=== PATIENT | male | born 1960 | race African-American/Black ===

== ENCOUNTER 2018-08-19 08:24 | Inpatient (IN) | payer OTHER | END 2018-08-21 12:48 | disposition left against medical advice (07) | LOC: YASAS 08:24 → Y3N 13:24 ==

== ENCOUNTER 2019-05-05 13:38 | Emergency (ER) | payer OTHER ==
[2019-05-05] MEDS ORDERED: HALOPERIDOL LACTATE 5 MG/ML IM ONE ×2 (13:50→14:26)
[2019-05-05] MEDS ORDERED: HALOPERIDOL LACTATE 5 MG/ML ONE ×2 (13:51→14:01)
[2019-05-05] MEDS ORDERED: LORazepam 2 MG/ML SDV VIAL ONE (14:01)
[2019-05-05] MEDS ORDERED: SODIUM CHLORIDE 0.9% 500 ML INFUS.BAG IV ONE (14:34)
--- NOTE | 2019-05-05 14:36 | PDOC ---
History of Present Illness - General Stated Complaint: INTOXIC Time Seen by Provider: 05/05/19 13:52 - History of Present Illness Initial Comments: The pt is a 58M w/ a history of EtOH abuse who presents for evaluation from [facility] intake for evaluation of intoxication. History is limited 2/2 pt cooperation. Pt reports EtOH use but denies other substance abuse. Pt denies any pain currently. 05/05/19 14:37 Past History - Past Medical History Allergies/Adverse Reactions: Allergies Allergy/AdvReac Type Severity Reaction Status Date / Time No Known Allergies Allergy Verified 08/19/18 08:56 Home Medications: Ambulatory Orders NK [No Known Home Medication] 08/19/18 Anemia: No Asthma: No Cancer: No Cardiac Disorders: No CVA: No COPD: No CHF: No Dementia: No Diabetes: No GI Disorders: No Disorders: No HTN: No Hypercholesterolemia: No Kidney Stones: No Liver Disease: No Seizures: No Thyroid Disease: No - Surgical History Abdominal Surgery: No Appendectomy: No Cardiac Surgery: No Cholecystectomy: No Lung Surgery: No Neurologic Surgery: No Orthopedic Surgery: Yes (repair of tendon right hand in 1982 at) - Reproductive History Testicular Surgery: No - Psycho Social/Smoking Cessation Hx Smoking History: Current every day smoker Have you smoked in the past 12 months: Yes Number of Cigarettes Smoked Daily: 5 'Breaking Loose' booklet given: 08/19/18 Hx Alcohol Use: Yes Drug/Substance Use Hx: No Substance Use Type: Alcohol Hx Substance Use Treatment: Yes Review of Systems - Review of Systems Able to Perform ROS?: Yes Comments:: GENERAL/CONSTITUTIONAL: No fever or chills. HEAD, EYES, EARS, NOSE AND THROAT: No change in vision. No change in hearing. No sore throat CARDIOVASCULAR: No chest pain or shortness of breath RESPIRATORY: Denies cough, hemoptysis GASTROINTESTINAL: No nausea, vomiting, diarrhea or constipation GENITOURINARY: No dysuria, frequency, or change in urination MUSCULOSKELETAL: No joint or muscle swelling or pain. No neck or back pain SKIN: No rash NEUROLOGIC: No headache, vertigo, loss of consciousness, or change in strength/ sensation ENDOCRINE: No increased thirst. No abnormal weight change HEMATOLOGIC/LYMPHATIC: No anemia, easy bleeding, or history of blood clots ALLERGIC/IMMUNOLOGIC: No hives or skin allergy 05/05/19 14:34 Is the patient limited Syrian proficient: No *Physical Exam - Vital Signs Initial Vital Signs Temp Pulse Resp BP Pulse Ox 97.8 F 105 H 19 105/64 99 05/05/19 14:35 05/05/19 14:35 05/05/19 14:35 05/05/19 14:35 05/05/19 14:35 05/05/19 16:21 - Physical Exam GENERAL: Awake, alert, and oriented to person, appears intoxicated HEAD: No signs of trauma, normocephalic, atraumatic EYES: PERRLA, EOMI, sclera anicteric, conjunctiva clear ENT: Hearing grossly normal, nares patent, oropharynx clear without exudates. Moist mucosa LUNGS: No distress, speaks in full sentences, clear to auscultation bilaterally HEART: Tachycardic rate with regular rhythm, normal S1 and S2, no murmurs appreciated, peripheral pulses normal and equal bilaterally ABDOMEN: Soft, nontender, normoactive bowel sounds. No guarding, no rebound EXTREMITIES: Normal inspection, Normal range of motion, no edema. No clubbing or cyanosis NEUROLOGICAL: Cranial nerves II through XII grossly intact. Slurred/tangential speech, no focal sensorimotor deficits SKIN: Warm, Dry 05/05/19 14:35 ED Treatment Course - LABORATORY CBC & Chemistry Diagram: 05/05/19 14:21 05/05/19 14:21 - Medications Given in the ED: ED Medications Discontinued Medications Generic Name Dose Route Start Last Admin Trade Name Freq PRN Reason Stop Dose Admin Diphenhydramine HCl 50 mg 05/05/19 13:51 05/05/19 14:26 Benadryl Injection - IM 05/05/19 13:52 50 mg ONCE ONE Administration Haloperidol 5 mg 05/05/19 13:50 05/05/19 14:26 Haldol Injection (Fast Acting) - IM 05/05/19 13:51 5 mg ONCE ONE Administration Haloperidol 5 mg 05/05/19 14:26 05/05/19 14:27 Haldol Injection (Fast Acting) - IM 05/05/19 14:27 5 mg ONCE ONE Administration Lorazepam 2 mg 05/05/19 14:26 05/05/19 14:27 Ativan Injection - IM 05/05/19 14:27 2 mg ONCE ONE Administration Medical Decision Making - Medical Decision Making The pt is a 58M w/ a history of EtOH abuse who presents for evaluation from [facility] intake for evaluation of intoxication. ED Course Labs sent S/p Haldol 10mg IM once, Benadryl 50mg IM once, Ativan 2mg IM once NS 1L Will reassess 05/05/19 14:35 No leukocytosis No anemia 05/05/19 15:23 Hypokalemia noted, likely 2/2 malnutrition Lytes otherwise unremarkable No SRINI AST elevated, consistent with EtOH use, reminder of LFTs unremarkable 05/05/19 16:22 CT head and c-spine read pending 05/05/19 21:33 CT head w/o acute pathology Pt ambulating in ED and following commands Plan for D/C to [facility] Discharge instructions and return precautions given Patient in agreement and verbalized understanding Dispo: [facility] 05/05/19 22:29 Discharge - Discharge Information Problems reviewed: Yes Clinical Impression/Diagnosis: Alcohol use disorder Condition: Stable Disposition: HOME - Admission No - Follow up/Referral - Patient Discharge Instructions Patient Printed Discharge Instructions: DI for Alcohol Abuse Additional Instructions: Please return to the emergency department with any new or worsening symptoms or concerns. Please follow up with your primary care physician within 72 hours. - Post Discharge Activity
[2019-05-05 14:38] VITALS: BMI 27.6
[2019-05-05 15:17] LABS: BASO % 0.3 % (0-2.0); EOS % 0.6 % (0-4.5); HEMATOCRIT 37.3 % (35.4-49); HEMOGLOBIN 11.8 GM/dL (11.7-16.9); LYMPH % 33.6 % (8-40); MCHC 31.7 g/dl (32.0-35.9); MEAN CELL VOLUME 91.6 fl (80-96); MEAN PLT VOLUME 7.6 fl (7.5-11.1); MONO % 11.2 % (3.8-10.2); NEUT % 54.3 % (42.8-82.8); PLATELET COUNT 225 K/MM3 (134-434); RBC 4.07 M/mm3 (4.00-5.60); RDW 15.4 % (11.9-15.9); WHITE BLOOD COUNT 3.1 K/mm3 (4.0-10.0)
--- NOTE | 2019-05-05 15:33 | PDOC ---
Attending Attestation - Resident Resident Name: Porfirio Valero - ED Attending Attestation I have performed the following: I have examined & evaluated the patient, The case was reviewed & discussed with the resident, I agree w/resident's findings & plan - HPI HPI: 05/05/19 15:32 58M w/ a history of EtOH abuse who presents for evaluation from [facility] intake for evaluation of intoxication. History is limited 2/2 pt cooperation. Pt reports EtOH use but denies other substance abuse. Pt denies any pain currently. no known trauma. 05/05/19 14:37 - Physicial Exam PE: 05/05/19 15:32 Agree with the resident's HPI and PE as documented in the electronic medical record. intoxicated. NCAT. EOMI, PERRL, nl conjunctiva, anicteric; neck supple. lungs clear, +tachycardic, abdomen soft nontender. no rebound, guarding. Back nontender. [place] x4, no focal neuro deficits. No peripheral edema. normal color for ethnicity, WWP. clinically intoxicated, shouting out loud, singing. poorly cooperative intoxicated, slurring speech 05/05/19 18:21 - Medical Decision Making 05/05/19 15:33 Vital Signs Temp Pulse Resp BP Pulse Ox 97.8 F 105 H 19 105/64 99 05/05/19 14:35 05/05/19 14:35 05/05/19 14:35 05/05/19 14:35 05/05/19 14:35 DDx. alcohol intoxication, alcohol withdrawal. drug intoxication Patient demonstrates clinical evidence for alcohol intoxication. The patient admits to intentional heavy drinking of alcohol and denies fall or injury. The patient also denies drug use. Some of the history and physical exam is limited due to the state of intoxication. All clothes were removed, all parts of the body were evaluated and there is no evidence of acute trauma. The plan is to observe patient in the ED until clinical sobriety is reached and reassess history and physical examination. pt had to receive haldol/ativan/benadryl for sedation, as he was becoming disruptive and difficult to control. unable to verbally de escalate will continue to monitor. labs and lytes with low K 3.1, replete with k rider x3, given he is somnolent after chemical sedation for his intox clinically intoxicated still on reassessment s/o to Dr Barber pending sobriety/reeval, back to [facility] once stabilized. 05/05/19 19:01
[2019-05-05 15:39] LABS: BILIRUBIN,TOTAL 0.8 mg/dL (0.2-1); BLOOD UREA NITROGEN 4.7 mg/dL (7-18); CALCIUM 8.6 mg/dL (8.5-10.1); CREATININE 0.8 mg/dL (0.55-1.3); POTASSIUM 3.1 mmol/L (3.5-5.1); TOT PROT 7.4 g/dl (6.4-8.2)
[2019-05-05] MEDS ORDERED: KCL 10 MEQ IVPB 10 MEQ/100 ML INFUS.BAG IVPB ONE (18:25)
[2019-05-05] MEDS: KCL 10 MEQ IVPB 10 MEQ/100 ML INFUS.BAG IVPB SCH ×2 (18:28→21:16)
[2019-05-05 18:40] VITALS: BP 110/63; PULSE 85; TEMP 98.2
--- NOTE | 2019-05-05 20:20 | PDOC ---
*Physical Exam - Vital Signs Last Vital Signs Temp Pulse Resp BP Pulse Ox 98.2 F 85 19 110/63 98 05/05/19 18:39 05/05/19 18:39 05/05/19 18:39 05/05/19 18:39 05/05/19 18:39 - Physical Exam 05/05/19 20:27 GENERAL: somonolent on exam, responsive to verbal and tactile stimuli, disoriented. speech incoherent, nonsensical. Partially follows commands. HEAD: No signs of trauma, normocephalic, atraumatic EYES: PERRLA, EOMI, sclera anicteric, conjunctiva clear ENT: Hearing grossly normal, nares patent, oropharynx clear without exudates. Moist mucosa NECK: Normal ROM, supple, no lymphadenopathy, JVD, or masses LUNGS: No distress, speaks full sentences, clear to auscultation bilaterally HEART: Regular rate and rhythm, normal S1 and S2, no murmurs, rubs or gallops, peripheral pulses normal and equal bilaterally. ABDOMEN: Soft, nontender, normoactive bowel sounds. No guarding, no rebound. No masses EXTREMITIES : Normal inspection, Normal range of motion, no edema. No clubbing or cyanosis NEUROLOGICAL: Cranial nerves II through XII grossly intact. No focal sensorimotor deficits SKIN: Warm, Dry, normal turgor, no rashes or lesions noted ED Treatment Course - LABORATORY CBC & Chemistry Diagram: 05/05/19 14:21 05/05/19 14:21 - ADDITIONAL ORDERS Additional order review: Laboratory Results 05/05/19 14:21 Sodium 144 Potassium 3.1 L Chloride 107 Carbon Dioxide 26 Anion Gap 11 BUN 4.7 L Creatinine 0.8 Est GFR (CKD-EPI)AfAm 114.93 Est GFR (CKD-EPI)NonAf 99.16 Random Glucose 87 Calcium 8.6 Total Bilirubin 0.8 AST 69 H ALT 59 Alkaline Phosphatase 61 Total Protein 7.4 Albumin 4.0 05/05/19 14:21 RBC 4.07 MCV 91.6 MCHC 31.7 L RDW 15.4 MPV 7.6 Neutrophils % 54.3 Lymphocytes % 33.6 Monocytes % 11.2 H Eosinophils % 0.6 Basophils % 0.3 - Medications Given in the ED: ED Medications Discontinued Medications Generic Name Dose Route Start Last Admin Trade Name Freq PRN Reason Stop Dose Admin Diphenhydramine HCl 50 mg 05/05/19 13:51 05/05/19 14:26 Benadryl Injection - IM 05/05/19 13:52 50 mg ONCE ONE Administration Haloperidol 5 mg 05/05/19 13:50 05/05/19 14:26 Haldol Injection (Fast Acting) - IM 05/05/19 13:51 5 mg ONCE ONE Administration Haloperidol 5 mg 05/05/19 14:26 05/05/19 14:27 Haldol Injection (Fast Acting) - IM 05/05/19 14:27 5 mg ONCE ONE Administration Lorazepam 2 mg 05/05/19 14:26 05/05/19 14:27 Ativan Injection - IM 05/05/19 14:27 2 mg ONCE ONE Administration Sodium Chloride 1,000 ml 05/05/19 14:34 05/05/19 14:41 Normal Saline - IV 05/05/19 14:35 1,000 ml ONCE ONE Administration Medical Decision Making - Medical Decision Making 05/05/19 20:22 58 yo M with h/o Etoh use who presents from outside facility ([facility]) for suspected intoxication, and agitation. Patient endorsed by Dr. Valenzuela. Exam notable for somonolence, responsive to verbal and tactile stimuli, disoriented. speech incoherent, nonsensical. Partially follows commands. Patient non cooperative, agitated. HR 105, vitals otherwise wnl, AF, A&Ox3. Patient received Haldol 5 mg, 2 Ativan, Diphehydramine 50 mg. Patient denied illicit drug use, or alcohol intake today. Patient pending lab eval, sobriety. Patient refused transport back to Ed Course: 05/05/19 20:34 05/05/19 22:03 patient A&Ox3, gait nml, sober clinically. Stable for d/c Requests detox for Etoh Arrange transfer to [facility] Laboratory Tests 05/05/19 05/05/19 14:21 14:21 WBC 3.1 L Hgb 11.8 Hct 37.3 Plt Count 225 D Sodium 144 Potassium 3.1 L BUN 4.7 L Creatinine 0.8 Discharge - Discharge Information Problems reviewed: Yes Clinical Impression/Diagnosis: Alcohol use disorder Condition: Stable Disposition: HOME - Admission No - Follow up/Referral - Patient Discharge Instructions Patient Printed Discharge Instructions: DI for Alcohol Abuse Additional Instructions: Please return to the emergency department with any new or worsening symptoms or concerns. Please follow up with your primary care physician within 72 hours. - Post Discharge Activity
[2019-05-05] MEDS ORDERED: POTASSIUM CHLORIDE TABS 20 MEQ TABLET.ER (FP) PO ONE ×2 (20:54→21:23)
[2019-05-05] MEDS ORDERED: KCL 10 MEQ IVPB 10 MEQ/100 ML INFUS.BAG IVPB SCH (21:00)
== END 2019-05-05 23:00 | disposition home or self-care (01) ==
LOC: JER 13:38
PROC: 3E023NZ Introduction of Analgesics, Hypnotics, Sedatives into Muscle, Percutaneous Approach (ICD-10-PCS; principal; 2019-05-05)
PROC: 3E023NZ Introduction of Analgesics, Hypnotics, Sedatives into Muscle, Percutaneous Approach (ICD-10-PCS; 2019-05-05)
PROC: 3E023GC Introduction of Other Therapeutic Substance into Muscle, Percutaneous Approach (ICD-10-PCS; 2019-05-05)
DX: F10.120 Alcohol abuse with intoxication, uncomplicated (principal); R45.1 Restlessness and agitation; E87.0 Hyperosmolality and hypernatremia; R74.0 Nonspecific elevation of levels of transaminase and lactic acid dehydrogenase [LDH]; F17.210 Nicotine dependence, cigarettes, uncomplicated
CPT/HCPCS: 36415; 70450-TC; 72125-TC; 80053; 85025; 96372; 99285-25

== ENCOUNTER 2019-05-05 22:38 | Inpatient (IN) | payer OTHER ==
[2019-05-05 23:03] VITALS: BMI 26.9
--- NOTE | 2019-05-06 00:58 | HP ---
CIWA Score Nausea/Vomitin-Mild Nausea/No Vomiting Muscle Tremors: 4-Moderate,w/Arms Extend Anxiety: 3 Agitation: 3 Paroxysmal Sweats: 3 Orientation: 1-Uncertain about Date Tacttile Disturbances: 0-None Auditory Disturbances: 0-None Visual Disturbances: 0-None Headache: 2-Mild CIWA-Ar Total Score: 17 - Admission Criteria OASAS Guidelines: Admission for Medically Managed Detox: Requires at least one of the followin. CIWA greater than 12 2. Seizures within the past 24 hours 3. Delirium tremens within the past 24 hours 4. Hallucinations within the past 24 hours 5. Acute intervention needed for co occurring medical disorder 6. Acute intervention needed for co occurring psychiatric disorder 7. Severe withdrawal that cannot be handled at a lower level of care (continued vomiting, continued diarrhea, abnormal vital signs) requiring intravenous medication and/or fluids 8. Admitting History and Physical - Smoking History Smoking history: Current every day smoker Have you smoked in the past 12 months: Yes Aproximately how many cigarettes per day: 5 - Alcohol/Substance Use Hx Alcohol Use: Yes Admission ROS [facility] Chief Complaint: Seeking admission to detox from alcohol Allergies/Adverse Reactions: Allergies Allergy/AdvReac Type Severity Reaction Status Date / Time No Known Allergies Allergy Verified 05/05/19 23:00 History of Present Illness: 58 years old male with a long history of alcohol dependence is seeking admission to detox was received from emergency room. Patient's last admission to [facility] was for the period 08/19/2018 - and he reports insignificant period of sobriety. He denies medical history, report psych. history of depression and denies suicidal ideation at his time. 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 Exam Limitations: No Limitations - Ebola screening Have you traveled outside of the country in the last 21 days: No Do you have a fever: No - Review of Systems Constitutional: Chills, Malaise, Changes in sleep EENT: reports: No Symptoms Reported Respiratory: reports: No Symptoms reported Cardiac: reports: No Symptoms Reported GI: reports: Nausea, Poor Fluid Intake, Abdominal cramping : reports: No Symptoms Reported Musculoskeletal: reports: Back Pain Integumentary: reports: Dryness, Flushing Neuro: reports: Tremors Endocrine: reports: No Symptoms Reported Hematology: reports: No Symptoms Reported Psychiatric: reports: Mood/Affect Appropiate, Orientated x3, Anxious Other Systems: Reviewed and Negative Patient History - Patient Medical History Hx Anemia: No Hx Asthma: No Hx Chronic Obstructive Pulmonary Disease (COPD): No Hx Cancer: No Hx Cardiac Disorders: No Hx Congestive Heart Failure: No Hx Hypertension: No Hx Hypercholesterolemia: No Hx Pacemaker: No HX Cerebrovascular Accident: No Hx Seizures: No Hx Dementia: No Hx Diabetes: No Hx Gastrointestinal Disorders: No Hx Liver Disease: No Hx Genitourinary Disorders: No Hx Sexually Transmitted Disorders: No Hx Renal Disease (ESRD): No Hx Thyroid Disease: No Hx Human Immunodeficiency Virus (HIV): No (Negative 2019) Hx Hepatitis C: No Hx Depression: Yes Hx Suicide Attempt: No (Denies suicidal ideation at this time) Hx Bipolar Disorder: No Hx Schizophrenia: No - Patient Surgical History Past Surgical History: Yes Hx Neurologic Surgery: No Hx Cataract Extraction: No Hx Cardiac Surgery: No Hx Lung Surgery: No Hx Abdominal Surgery: No Hx Appendectomy: No Hx Cholecystectomy: No Hx Genitourinary Surgery: No Hx Orth[facility] Surgery: Yes [facility] Other Surgical History: fx of left elbow surgery in 1997 at [facility] Anesthesia Reaction: No - PPD History Previous Implant?: Yes Documented Results: Negative w/proof Implanted On Prior [facility] Admission?: Yes Date: 08/21/18 PPD to be Administered?: No - Reproductive History Patient is a Female of Child Bearing Age (11 -55 yrs old): No (male) - Smoking Cessation Smoking history: Current every day smoker Have you smoked in the past 12 months: Yes Aproximately how many cigarettes per day: 5 Hx Chewing Tobacco Use: No Initiated information on smoking cessation: Yes 'Breaking Loose' booklet given: 05/06/19 - Substance & Tx. History Hx Alcohol Use: Yes Hx Substance Use: No Substance Use Type: Alcohol Hx Substance Use Treatment: Yes ([facility]) - Substances abused Alcohol Substance route: Oral Frequency: Daily Amount used: 3 PINTS Age of first use: 16 Date of last use: 05/05/19 Admission Physical Exam BHS - Vital Signs Vital Signs: Vital Signs - 24 hr 05/05/19 23:00 Temperature 97 F L Pulse Rate 97 H Respiratory 18 Rate Blood Pressure 128/78 - Physical General Appearance: Yes: Within Normal Limits HEENTM: Yes: Within Normal Limits Respiratory: Yes: Lungs Clear, Normal Breath Sounds, No Respiratory Distress Neck: Yes: Within Normal Limits Breast: Yes: Breast Exam Deferred Cardiology: Yes: Tachycardia Abdominal: Yes: Normal Bowel Sounds, Soft Genitourinary: Yes: Within Normal Limits Back: Yes: Normal Inspection Musculoskeletal: Yes: Back pain Extremities: Yes: Tremors Neurological: Yes: Within Normal Limits, Alert, Normal Mood/Affect Integumentary: Yes: Warm Lymphatic: Yes: Within Normal Limits Cleared for Admission S - Detox or Rehab [facility] Level of Care: Medically Managed Detox Regimen/Protocol: Librium Claeared for Rehab Admission: No Breathalyzer - Breathalyzer Breathalyzer: 0.116 Urine Drug Screen - Test Device Lot number: [id number] Expiration date: 01/31/21 - Control Is test valid?: Yes - Results Drug screen NEGATIVE: No Urine drug screen results: BZO-Benzodiazepines Inpatient Rehab Admission - Rehab Decision to Admit Inpatient rehab admission?: No
[2019-05-06] MEDS ORDERED: MAG HYDROX/AL HYDROX/SIMETH 30 ML UNIT-DOSE CUP PO PRN (01:09)
[2019-05-06] MEDS ORDERED: MENTHOL/PHENOL 1 EACH UD MM PRN (01:09)
[2019-05-06] MEDS ORDERED: ONDANSETRON *ODT* 4 MG TABLET SL ONE (01:09)
[2019-05-06] MEDS ORDERED: IBUPROFEN 400 MG TABLET (FP) PO PRN (01:09)
[2019-05-06] MEDS ORDERED: MAGNESIUM HYDROX 2400MG/30ML ORAL SUSPENSION 30 ML CUP PO PRN (01:09)
[2019-05-06] MEDS ORDERED: ACETAMINOPHEN 325 MG TABLET (FP) PO PRN ×2 (01:09)
[2019-05-06] MEDS ORDERED: BISMUTH SUBSALICYLATE 524 MG/30 ML UD PO PRN (01:09)
[2019-05-06] MEDS ORDERED: NICOTINE POLACRILEX 2 MG GUM BUC PRN (01:09)
[2019-05-06] MEDS ORDERED: METHOCARBAMOL 500 MG TABLET PO PRN (01:09)
[2019-05-06] MEDS ORDERED: MAGNESIUM CITRATE 300 ML BOTTLE PO PRN (01:09)
[2019-05-06] MEDS ORDERED: chlordiazePOXIDE HCL 25 MG CAPSULE PO PRN (01:09)
[2019-05-06] MEDS: chlordiazePOXIDE HCL 25 MG CAPSULE PO SCH ×4 (06:05→22:07)
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
--- NOTE | 2019-05-06 08:41 | EKG ---
Test Reason : Blood Pressure : / mmHG Vent. Rate : 086 BPM Atrial Rate : 086 BPM P-R Int : 168 ms QRS Dur : 072 ms QT Int : 380 ms P-R-T Axes : 067 027 030 degrees QTc Int : 454 ms NORMAL SINUS RHYTHM LOW VOLTAGE QRS BORDERLINE ECG NO PREVIOUS ECGS AVAILABLE Confirmed by MD ELY, HANNAH ([id number]) on 05/06/2019 8:41:08 AM Referred By: Liban Meraz Confirmed By:HANNAH GRAVES MD
--- NOTE | 2019-05-06 09:01 | PN ---
S CIWA - CIWA Score Nausea/Vomitin-Mild Nausea/No Vomiting Muscle Tremors: 2 Anxiety: 2 Agitation: 2 Paroxysmal Sweats: 1-Minimal Palms Moist Orientation: 0-Oriented Tacttile Disturbances: 1-Very Mild Itch/Numbness Auditory Disturbances: 0-None Visual Disturbances: 0-None Headache: 2-Mild CIWA-Ar Total Score: 11 BHS Progress Note (SOAP) Subjective: alert,irritable,anxious,interrupted sleep,tremor Objective: 05/06/19 09:00 Vital Signs Temperature 99.1 F 05/06/19 05:05 Pulse Rate 92 H 05/06/19 05:05 Respiratory Rate 18 05/06/19 05:05 Blood Pressure 121/80 05/06/19 05:05 O2 Sat by Pulse Oximetry (%) Assessment: 05/06/19 09:00 withdrawal symptom Plan: continue detox librium regimen
[2019-05-06] MEDS: PRENATAL VITAMINS W/ FOLIC ACID TABLET (FP) PO SCH (10:18)
[2019-05-06] MEDS: NICOTINE 14 MG/24 HOURS TOPICAL PATCH TD SCH (20:56)
[2019-05-06] MEDS ORDERED: THIAMINE HCL 100 MG TABLET (FP) PO SCH (22:00)
[2019-05-06] MEDS ORDERED: MELATONIN 5 MG TABLETS PO SCH (22:00)
[2019-05-07] MEDS: chlordiazePOXIDE HCL 25 MG CAPSULE PO SCH ×2 (07:40→10:38)
--- NOTE | 2019-05-07 08:48 | PN ---
S CIWA - CIWA Score Nausea/Vomitin-Mild Nausea/No Vomiting Muscle Tremors: 1-None Visible, but [place] Anxiety: 2 Agitation: 2 Paroxysmal Sweats: No Perspiration Orientation: 0-Oriented Tacttile Disturbances: 1-Very Mild Itch/Numbness Auditory Disturbances: 0-None Visual Disturbances: 0-None Headache: 1-Very Mild CIWA-Ar Total Score: 8 BHS Progress Note (SOAP) Subjective: alert,irritable,anxious,interrupted sleep,pain in the body Objective: 05/07/19 08:52 Vital Signs Temperature 97.5 F L 05/07/19 07:18 Pulse Rate 68 05/07/19 07:18 Respiratory Rate 18 05/07/19 07:18 Blood Pressure 116/75 05/07/19 07:18 O2 Sat by Pulse Oximetry (%) 05/07/19 08:53 labs pending Assessment: 05/07/19 08:54 withdrawal symptom Plan: continue detox
[2019-05-07] MEDS: PRENATAL VITAMINS W/ FOLIC ACID TABLET (FP) PO SCH (10:38)
[2019-05-07] MEDS: NICOTINE 14 MG/24 HOURS TOPICAL PATCH TD SCH (10:38)
[2019-05-07 13:05] LABS: HEMATOCRIT 33.5 % (35.4-49); HEMOGLOBIN 10.8 GM/dL (11.7-16.9); MCH 29.8 pg (25.7-33.7); MCHC 32.4 g/dl (32.0-35.9); MEAN CELL VOLUME 91.9 fl (80-96); MEAN PLT VOLUME 7.6 fl (7.5-11.1); PLATELET COUNT 206 K/MM3 (134-434); RBC 3.64 M/mm3 (4.00-5.60); RDW 15.5 % (11.9-15.9); WHITE BLOOD COUNT 4.1 K/mm3 (4.0-10.0)
[2019-05-07 13:25] LABS: ALBUMIN 3.3 g/dl (3.4-5.0); BILIRUBIN,TOTAL 0.4 mg/dL (0.2-1); BLOOD UREA NITROGEN 9.7 mg/dL (7-18); CALCIUM 8.9 mg/dL (8.5-10.1); CREATININE 0.7 mg/dL (0.55-1.3); POTASSIUM 3.5 mmol/L (3.5-5.1); TOT PROT 6.3 g/dl (6.4-8.2)
--- NOTE | 2019-05-07 17:50 | DS ---
[facility] Detox Discharge Summary Admission Date: 05/06/19 Discharge Date: 05/07/19 - History Present History: Alcohol Dependence Additional Comments: CLIENT REQUESTING TO SIGN OUT AMA. HE IS NOT RECEPTIVE TO ENCOURAGEMENT TO CONTINUE TXMENT. STATES HE HAS AN EMERGENCY THAT HE NEEDS TO ATTEND TO. HE IS A/O X3 NAD. VSS D/W CLIENT ABOUT RISK FOR INTOXICATION AND POSSIBLE WITH RELAPSE. INCREASE RISK FOR WITHDRAWAL SEIZURES ALSO SHARED. CLIENT ACCEPTS RISK AND WOULD LIKE TO ABORT TXMENT. PRESENTLY DENIES SI/HI/AVH. Vital Signs Temperature 97.5 F L 05/07/19 17:50 Pulse Rate 80 05/07/19 17:50 Respiratory Rate 18 05/07/19 17:50 Blood Pressure 138/84 05/07/19 17:50 O2 Sat by Pulse Oximetry (%) - Physical Exam Results Vital Signs: Vital Signs Temperature 97.9 F 05/07/19 12:30 Pulse Rate 77 05/07/19 12:30 Respiratory Rate 18 05/07/19 12:30 Blood Pressure 122/85 05/07/19 12:30 O2 Sat by Pulse Oximetry (%) Pertinent Admission Physical Exam Findings: WITHDRAWAL SX'S Laboratory Tests 05/07/19 05/07/19 05/07/19 09:00 09:00 09:00 WBC 4.1 RBC 3.64 L Hgb 10.8 L Hct 33.5 L MCV 91.9 MCH 29.8 MCHC 32.4 RDW 15.5 Plt Count 206 MPV 7.6 Sodium 140 Potassium 3.5 Chloride 105 Carbon Dioxide 27 Anion Gap 8 BUN 9.7 Creatinine 0.7 Est GFR (CKD-EPI)AfAm 121.41 Est GFR (CKD-EPI)NonAf 104.76 Random Glucose 107 H Calcium 8.9 Total Bilirubin 0.4 AST 41 H ALT 48 Alkaline Phosphatase 82 Total Protein 6.3 L Albumin 3.3 L RPR Titer Nonreactive - Treatment Hospital Course: Discharged Condition Good - Medication Discharge Medications: Ambulatory Orders NK [No Known Home Medication] 08/19/18 - Diagnosis (1) Alcohol-induced mood disorder Status: Acute (2) Alcohol-induced sleep disorder Status: Acute (3) Nicotine dependence Status: Chronic Qualifiers: Nicotine product type: cigarettes Substance use status: uncomplicated Qualified Code(s): F17.210 - Nicotine dependence, cigarettes, uncomplicated (4) Alcohol dependence with withdrawal, uncomplicated Status: Acute - AMA Did Patient Leave Against Medical Advice: Yes
[2019-05-07 18:37] VITALS: BP 138/84; PULSE 80; TEMP 97.5
[2019-05-08] MEDS ORDERED: chlordiazePOXIDE HCL 10 MG CAPSULE PO PRN
[2019-05-08] MEDS ORDERED: chlordiazePOXIDE HCL 10 MG CAPSULE PO SCH (05:00)
[2019-05-09] MEDS ORDERED: chlordiazePOXIDE HCL 10 MG CAPSULE PO SCH (05:00)
[2019-05-10] MEDS ORDERED: chlordiazePOXIDE HCL 10 MG CAPSULE PO ONE (05:00)
== END 2019-05-07 18:12 | disposition left against medical advice (07) | DRG 770 ==
LOC: YASAS 22:38 → Y6N 05-06 01:28
PROVIDERS: ADMIT Allergy & Immunology; ATTEND Allergy & Immunology
PROC: HZ2ZZZZ Detoxification Services for Substance Abuse Treatment (ICD-10-PCS; principal; 2019-05-06)
DX: F10.230 Alcohol dependence with withdrawal, uncomplicated (principal); F17.210 Nicotine dependence, cigarettes, uncomplicated; F10.280 Alcohol dependence with alcohol-induced anxiety disorder; F10.24 Alcohol dependence with alcohol-induced mood disorder; Z62.810 Personal history of physical and sexual abuse in childhood; Z91.410 Personal history of adult physical and sexual abuse
CPT/HCPCS: 36415; 80053; 85027; 86593; 93005; 93010; Q0162

== ENCOUNTER 2023-08-08 13:38 | Inpatient (IN) | payer OTHER ==
[2023-08-08 14:18] VITALS: BMI 22.2
[2023-08-08] MEDS ORDERED: IBUPROFEN 400 MG TABLET (FP) PO PRN (16:00)
[2023-08-08] MEDS ORDERED: IBUPROFEN 600 MG TABLET (FP) PO PRN (16:00)
[2023-08-08] MEDS ORDERED: ACETAMINOPHEN 325 MG TABLET (FP) PO PRN (16:00)
[2023-08-08] MEDS ORDERED: DICYCLOMINE HCL 10 MG CAPSULE PO PRN (16:00)
[2023-08-08] MEDS ORDERED: POLYETHYLENE GLYCOL (HEALTHYLAX) 3350 17 GM PACKET PO PRN (16:00)
[2023-08-08] MEDS ORDERED: MAGNESIUM HYDROX 2400MG/30ML ORAL SUSPENSION 30 ML CUP PO PRN (16:00)
[2023-08-08] MEDS ORDERED: BENZOCAINE/MENTHOL (CHLORASEPTIC ) LOZENGE MM PRN (16:00)
[2023-08-08] MEDS ORDERED: ONDANSETRON *ODT* 4 MG TABLET SL PRN (16:00)
[2023-08-08] MEDS ORDERED: NICOTINE POLACRILEX 2 MG LOZENGE BC PRN (16:00)
[2023-08-08] MEDS ORDERED: LOPERAMIDE HCL 2 MG CAPSULE PO PRN (16:00)
[2023-08-08] MEDS ORDERED: BENZONATATE 200 MG CAPSULE PO PRN (16:00)
[2023-08-08] MEDS ORDERED: guaiFENesin 600 MG TABLET.ER (FP) PO PRN (16:00)
[2023-08-08] MEDS ORDERED: MAG HYDROX/AL HYDROX/SIMETH 30 ML UNIT-DOSE CUP PO PRN (16:00)
[2023-08-08] MEDS: amLODIPine BESYLATE 2.5 MG TABLET (FP) PO ONE (19:47)
[2023-08-08] MEDS: THIAMINE 100 MG TABLET PO SCH (22:30)
[2023-08-08] MEDS: MELATONIN 5 MG TABLETS PO SCH (22:30)
[2023-08-09] MEDS ORDERED: diazePAM 5 MG TABLET PO PRN (09:21)
[2023-08-09] MEDS: PRENATAL VITAMINS W/ FOLIC ACID TABLET (FP) PO SCH (10:17)
[2023-08-09] MEDS: diazePAM 5 MG TABLET PO SCH (10:18)
[2023-08-09 10:31] LABS: HEMATOCRIT 34.7 % (35.4-49); HEMOGLOBIN 11.6 GM/dL (11.7-16.9); MCH 32.2 pg (25.7-33.7); MCHC 33.4 g/dl (32.0-35.9); MEAN CELL VOLUME 96.6 fl (80-96); MEAN PLT VOLUME 7.4 fl (7.5-11.1); PLATELET COUNT 237 10^3/uL (134-434); RBC 3.59 M/mm3 (4.00-5.60); RDW 13.9 % (11.9-15.9); WHITE BLOOD COUNT 2.8 K/mm3 (4.0-10.0)
[2023-08-09 10:32] LABS: POTASSIUM 3.9 mmol/L (3.5-5.1)
[2023-08-09 10:45] LABS: CALCIUM 9.2 mg/dL (8.5-10.1)
[2023-08-09 10:46] LABS: ALBUMIN 3.5 g/dl (3.4-5.0); BLOOD UREA NITROGEN 7.4 mg/dL (7-18)
[2023-08-09 10:47] LABS: CREATININE 0.7 mg/dL (0.55-1.3)
[2023-08-09 10:49] LABS: BILIRUBIN,TOTAL 1.5 mg/dL (0.2-1); TOT PROT 7.1 g/dl (6.4-8.2)
[2023-08-09] MEDS: METHOCARBAMOL 500 MG TABLET PO PRN (17:26)
[2023-08-09] MEDS: hydrOXYzine PAMOATE 25 MG CAPSULE (FP) PO PRN (17:26)
[2023-08-09] MEDS: BISMUTH SUBSALICYLATE 524 MG/30 ML PO PRN (20:35)
[2023-08-11] MEDS: diazePAM 5 MG TABLET PO SCH (05:23)
[2023-08-12] MEDS: diazePAM 5 MG TABLET PO SCH (05:53)
[2023-08-12 12:04] LABS: BASO % 0.4 % (0-2.0); EOS % 2.1 % (0-4.5); HEMATOCRIT 35.7 % (35.4-49); HEMOGLOBIN 11.8 GM/dL (11.7-16.9); LYMPH % 28.7 % (8-40); MCH 31.9 pg (25.7-33.7); MCHC 33.1 g/dl (32.0-35.9); MEAN CELL VOLUME 96.1 fl (80-96); MEAN PLT VOLUME 7.9 fl (7.5-11.1); MONO % 9.4 % (3.8-10.2); NEUT % 59.4 % (42.8-82.8); PLATELET COUNT 218 10^3/uL (134-434); POTASSIUM 4.2 mmol/L (3.5-5.1); RBC 3.71 M/mm3 (4.00-5.60); RDW 14.1 % (11.9-15.9); WHITE BLOOD COUNT 4.1 K/mm3 (4.0-10.0)
[2023-08-12 12:06] LABS: CALCIUM 9.4 mg/dL (8.5-10.1)
[2023-08-12 12:07] LABS: BLOOD UREA NITROGEN 14.8 mg/dL (7-18)
[2023-08-12 12:10] LABS: CREATININE 0.8 mg/dL (0.55-1.3)
[2023-08-13] MEDS: diazePAM 5 MG TABLET PO ONE (05:27)
[2023-08-13 09:59] VITALS: BP 137/83; PULSE 80; RESP 16; TEMP 98.2
== END 2023-08-13 12:16 | disposition home or self-care (01) | DRG 775 ==
LOC: YASAS 13:38 → Y3N 18:35
PROVIDERS: ADMIT Allergy & Immunology; ATTEND Surgery
PROC: HZ2ZZZZ Detoxification Services for Substance Abuse Treatment (ICD-10-PCS; principal; 2023-08-08)
DX: F10.230 Alcohol dependence with withdrawal, uncomplicated (principal); F10.220 Alcohol dependence with intoxication, uncomplicated; F17.210 Nicotine dependence, cigarettes, uncomplicated; Z59.01 Sheltered homelessness
CPT/HCPCS: 36415; 80048; 80053; 80305; 80307; 85025; 85027; 86780; 93005; 93010

== ENCOUNTER 2023-10-03 14:07 | Inpatient (IN) | payer OTHER ==
[2023-10-03 15:34] VITALS: BMI 23.5
[2023-10-03] MEDS ORDERED: BISMUTH SUBSALICYLATE 524 MG/30 ML PO PRN (17:02)
[2023-10-03] MEDS ORDERED: NALOXONE HCL 0.4 MG/ML VIAL IM PRN (17:02)
[2023-10-03] MEDS ORDERED: POLYETHYLENE GLYCOL (HEALTHYLAX) 3350 17 GM PACKET PO PRN (17:02)
[2023-10-03] MEDS ORDERED: ONDANSETRON *ODT* 4 MG TABLET SL PRN (17:02)
[2023-10-03] MEDS ORDERED: IBUPROFEN 600 MG TABLET (FP) PO PRN (17:02)
[2023-10-03] MEDS ORDERED: BENZOCAINE/MENTHOL (CHLORASEPTIC ) LOZENGE MM PRN (17:02)
[2023-10-03] MEDS ORDERED: IBUPROFEN 400 MG TABLET (FP) PO PRN (17:02)
[2023-10-03] MEDS ORDERED: ACETAMINOPHEN 325 MG TABLET (FP) PO PRN (17:02)
[2023-10-03] MEDS ORDERED: guaiFENesin 600 MG TABLET.ER (FP) PO PRN (17:02)
[2023-10-03] MEDS ORDERED: MAG HYDROX/AL HYDROX/SIMETH 30 ML UNIT-DOSE CUP PO PRN (17:02)
[2023-10-03] MEDS ORDERED: LOPERAMIDE HCL 2 MG CAPSULE PO PRN (17:02)
[2023-10-03] MEDS ORDERED: MAGNESIUM HYDROX 2400MG/30ML ORAL SUSPENSION 30 ML CUP PO PRN (17:02)
[2023-10-03] MEDS ORDERED: NICOTINE POLACRILEX 4 MG GUM BUC PRN (17:02)
[2023-10-03] MEDS ORDERED: DICYCLOMINE HCL 10 MG CAPSULE PO PRN (17:02)
[2023-10-03] MEDS ORDERED: BENZONATATE 200 MG CAPSULE PO PRN (17:02)
[2023-10-03] MEDS ORDERED: NALOXONE (NARCAN) HCL 4 MG/0.1 ML SPRAY NS PRN (17:02)
[2023-10-03] MEDS: MELATONIN 5 MG TABLETS PO SCH (21:47)
[2023-10-03] MEDS: THIAMINE 100 MG TABLET PO SCH (21:47)
[2023-10-03] MEDS: hydrOXYzine PAMOATE 25 MG CAPSULE (FP) PO PRN (21:48)
[2023-10-03] MEDS: METHOCARBAMOL 500 MG TABLET PO PRN (21:48)
[2023-10-04] MEDS: PRENATAL VITAMINS W/ FOLIC ACID TABLET (FP) PO SCH (10:15)
[2023-10-04 11:46] LABS: HEMATOCRIT 33.6 % (35.4-49); HEMOGLOBIN 11.1 GM/dL (11.7-16.9); MCHC 32.9 g/dl (32.0-35.9); MEAN CELL VOLUME 94.1 fl (80-96); MEAN PLT VOLUME 7.1 fl (7.5-11.1); PLATELET COUNT 194 10^3/uL (134-434); RBC 3.57 M/mm3 (4.00-5.60); RDW 14.5 % (11.9-15.9); WHITE BLOOD COUNT 2.8 K/mm3 (4.0-10.0)
[2023-10-04 13:06] LABS: CHLORIDE 109 mmol/L (98-107); POTASSIUM 3.7 mmol/L (3.5-5.1); SODIUM 142 mmol/L (136-145)
[2023-10-04 13:08] LABS: BLOOD UREA NITROGEN 8.4 mg/dL (7-18)
[2023-10-04 13:09] LABS: ALBUMIN 3.3 g/dl (3.4-5.0); ANION GAP 6 mmol/L (4-13); CO2 28 mmol/L (21-32); GLUCOSE,RANDOM 76 mg/dL (74-106)
[2023-10-04 13:11] LABS: CREATININE 0.8 mg/dL (0.55-1.3)
[2023-10-04 13:12] LABS: SGOT/AST 22 U/L (15-37); SGPT/ALT 26 U/L (13-61)
[2023-10-04 13:13] LABS: TOT PROT 6.4 g/dl (6.4-8.2)
[2023-10-04 13:15] LABS: ALK PHOS 51 U/L (45-117)
[2023-10-04] MEDS: diazePAM 5 MG TABLET PO PRN (14:08)
[2023-10-04] MEDS: diazePAM 5 MG TABLET PO SCH (17:05)
[2023-10-05 08:49] VITALS: BP 144/95; PULSE 72; RESP 16; TEMP 98
[2023-10-06] MEDS ORDERED: diazePAM 5 MG TABLET PO SCH (06:00)
[2023-10-07] MEDS ORDERED: diazePAM 5 MG TABLET PO SCH (06:00)
[2023-10-08] MEDS ORDERED: diazePAM 5 MG TABLET PO ONE (06:00)
== END 2023-10-05 09:24 | disposition left against medical advice (07) | DRG 770 ==
LOC: YASAS 14:07 → Y3N 17:17
PROVIDERS: ADMIT Allergy & Immunology; ATTEND Surgery
PROC: HZ2ZZZZ Detoxification Services for Substance Abuse Treatment (ICD-10-PCS; principal; 2023-10-03)
DX: F10.230 Alcohol dependence with withdrawal, uncomplicated (principal); F10.220 Alcohol dependence with intoxication, uncomplicated; F10.282 Alcohol dependence with alcohol-induced sleep disorder; F10.24 Alcohol dependence with alcohol-induced mood disorder; F17.210 Nicotine dependence, cigarettes, uncomplicated; G47.00 Insomnia, unspecified
CPT/HCPCS: 36415; 80053; 80305; 80307; 82140; 83036; 85027; 86780; 93005; 93010